=== PATIENT | female | born 1965 | race Caucasian/White ===

== ENCOUNTER 2025-07-17 08:25 | Inpatient (IN) | payer OTHER ==
[2025-07-19] MEDS ORDERED: Naloxone 0.4 MG/ML SDV IM PRN (13:07)
[2025-07-19] MEDS: Amoxicillin/Clavulanate K 875-125 MG Tab PO SCH (16:12)
[2025-07-19] MEDS: Insulin Lispro 100 Unit/ML 3 ML KwikPen SUBCUT SCH (17:23)
[2025-07-19] MEDS: Ondansetron 4 MG Tab.DIS PO PRN (20:44)
[2025-07-19] MEDS: Sodium Chloride 0.9% 10 ML Syringe FLUSH SCH (21:00)
[2025-07-20] MEDS: Psyllium Husk Powder Sugar Free 5.85 GM Packet PO SCH (08:56)
[2025-07-20] MEDS: Saccharomyces Boulardii (Probiotic) 250 MG Cap PO SCH (09:13)
[2025-07-21] MEDS: Saccharomyces Boulardii (Probiotic) 250 MG Cap PO SCH (20:23)
[2025-07-22 10:22] LABS: PLATELET COUNT,PLT 573.0 x10(3)uL (151-488); RED BLOOD CELL COUNT 2.7 x10(6)uL (3.60-5.20); RED CELL DISTRIBUTION WIDTH 16.2 % (12.3-16.5); WHITE BLOOD CELL COUNT,WBC 21.9 x10-3/uL (3.0-10.3)
[2025-07-22 10:33] LABS: BLOOD UREA NITROGEN,BUN 8 mg/dL (7-18); CARBON DIOXIDE,CO2 29 mmol/L (21-32); CHLORIDE,CL 94 mmol/L (100-110); CREATININE 1.0 mg/dL (0.55-1.02); EST CRCL DRUG DOSING (CG) 53.60 mL/min; ESTIMATED GFR 66 mL/min (>60); GLUCOSE RANDOM 119 mg/dL (80-116); POTASSIUM,K 4.3 mmol/L (3.5-5.3); SODIUM,NA 126 mmol/L (135-145)
[2025-07-22 10:39] LABS: A/G RATIO 0.3; ALANINE AMINOTRANSFERASE,ALT 14 U/L (12-36); ASPARTATE AMNIOTRANSFERASE,AST 20 IU/L (5-25); BILIRUBIN TOTAL 0.6 mg/dL (0.1-1.3); PROTEIN TOTAL,TP 7.2 g/dL (6.0-8.0)
[2025-07-22] MEDS: Iopamidol 755 Mg/ML 100 ML Bottle IV ONE (11:19)
[2025-07-22] MEDS: Ampicillin/Sulbactam Na 3 GM in Sodium Chloride 0.9% 100 ML IV STA (12:31)
[2025-07-22] MEDS: VANCOmycin 2 GM/400 ML 2 GM in Premix Bag 1 BAG IV ONE (14:15)
[2025-07-22] MEDS: VANCOmycin 2 GM/400 ML 400 ML ONE (14:22)
== END 2025-07-22 16:40 | DRG 947 ==
LOC: UNDOADMIN 07-19 12:17 → FB.MS 07-19 12:17
PROVIDERS: ADMIT Family Medicine; ATTEND Family Medicine
DX: R53.1 Weakness (principal); A41.9 Sepsis, unspecified organism; K63.1 Perforation of intestine (nontraumatic); C18.9 Malignant neoplasm of colon, unspecified; Z68.41 Body mass index [BMI] 40.0-44.9, adult; E66.01 Morbid (severe) obesity due to excess calories; J30.9 Allergic rhinitis, unspecified; F41.9 Anxiety disorder, unspecified; F32.A Depression, unspecified; E11.9 Type 2 diabetes mellitus without complications; Z98.890 Other specified postprocedural states; Z79.4 Long term (current) use of insulin; Z79.899 Other long term (current) drug therapy
CPT/HCPCS: 36415; 74177; 80053; 82947; 83605; 85027; 86140; 87040; 87077; 87186; 87230; 97161-GP; 97165-GO; 97530-GO; 97530-GP; 99305; 99315; A9270-GY; J0295; J3375; J7030; Q0162; Q9967